=== PATIENT | female | born 1985 | race Caucasian/White ===

== ENCOUNTER → 2016-05-24 | Outpatient (CLI) | payer OTHER ==
[~2016-05-24] MED LIST: ACETAMINOPHEN 325 MG TAB PO ONE; ONDANSETRON DISINTEGRATING 4 MG TAB PO ONE; diphenhydrAMINE 12.5 MG/5 ML UDCUP PO ONE
== END ==
LOC: F1NOP 10:49
PROVIDERS: ATTEND Internal Medicine Hematology & Oncology
PROC: 30233N1 Transfusion of Nonautologous Red Blood Cells into Peripheral Vein, Percutaneous Approach (ICD-10-PCS; principal; 2016-05-24)
DX: C50.919 Malignant neoplasm of unspecified site of unspecified female breast (principal)
CPT/HCPCS: 36430; P9016

== ENCOUNTER → 2016-05-24 | Outpatient (CLI) | payer OTHER ==
--- NOTE | 2016-05-24 12:02 | DX ---
Chest, PA and Lateral Views with ClearRead Bone Suppression Algorithm Image - May 24, 2016, at 10 :58 a.m. Clinical History: 31-year-old female with a history of metastatic breast cancer on chemotherapy, with a left Pleurx catheter, which has been draining less. Compare with prior [facility] ra diography and [facility] CT imaging. Comparison Study: Chest radiography from [facility] dated May 07, 2016 and [facility] 2015, and a PET/CT scan from [facility] dated April 18, 2016. Findings: There is a right IJ central venous catheter Mediport, which terminates in the distal SVC, just proximal to the cavoatrial junction. The patient has had a left mastectomy, and there is an augm entation mammoplasty. Numerous left axillary tom dissection clips are present. A left-sided Pleurx catheter is stable in position terminating medially. The cardiac silhouette remains mildly enlarged, and there is some persistent pleuroparenchymal consolidation at the left lung base seen both anterior ly and posteriorly, slightly improved from April, however, there is a persistent loculated compone nt of consolidation in the posterior left upper lobe, which has slightly diminished. Diffuse peribron chial thickening is seen with peripheral interstitial prominent markings in the right [id number] marco a ng zone. There is a tiny right pleural effusion with some right basilar subsegmental atelectasis. The re is a mild thoracic dextroscoliosis. There are some air-filled loops of small bowel with nonspecifi c features in the abdomen, as well as a small amount of air within the stomach. Impression: 1. Stable positioning of a left-sided Pleurx catheter with some improvement in the pleuroparenchymal consolidation at the left lung base compared to May 07, 2016, and slight improvement, though the re is a persistent area of dense pleuroparenchymal consolidation in the posterior left upper lobe. 2. Cardiomegaly with diffuse peribronchial thickening and persistent interstitial disease in the righ t mid and lower lung zones (similar to May 07, 2016), and a tiny right pleural effusion. Results were called to Dr. Tiffany Hopkins at [facility], as requested. A test result has been communicated to a licensed care provider and documented in [facility], 11:50:44 A M, 05/24/2016, [facility] Message ID [id number].
== END ==
LOC: FIMAGING 10:44
PROVIDERS: ATTEND Nurse Practitioner
DX: J90 Pleural effusion, not elsewhere classified (principal); I51.7 Cardiomegaly; J84.9 Interstitial pulmonary disease, unspecified; C50.919 Malignant neoplasm of unspecified site of unspecified female breast; Z96.89 Presence of other specified functional implants; Z79.899 Other long term (current) drug therapy

== ENCOUNTER 2016-06-07 07:24 | Emergency (ER) | payer OTHER ==
--- NOTE | 2016-06-07 07:46 | EDPHY ---
H & P Stated Complaint: HAS A DRAIN UNDER L BREAST, NOW HAVE SOB AND PAIN W/ INSPIRATION Time Seen by Provider: 06/07/16 07:46 HPI/ROS: CHIEF COMPLAINT: Right-sided pleuritic chest pain HISTORY OF PRESENT ILLNESS: The patient has a history of metastatic breast cancer. She presents to the ED with a 1 day history of right-sided pleuritic chest pain. She has had a slight increase in her chronic cough. The patient does have a history of a malignant pleural effusion in the left side of her chest. She has a chronic indwelling drain for this condition. The patient has not had a history of a pleural effusion on her right thorax. The patient reportedly had a CT scan done on Monday which demonstrated an abnormality in the right chest which she is uncertain of the specific finding. The patient denies asymmetric calf pain or swelling. The patient does report fairly significant weight loss. She denies additional acute complaints. REVIEW OF SYSTEMS: A comprehensive 10 point review of systems is otherwise negative aside from elements mentioned in the history of present illness. Source: Patient Exam Limitations: No limitations - Personal History LMP (Females 10-55): Over 28 Days Ago Current Tetanus/Diphtheria Vaccine: Yes Current Tetanus Diphtheria and Acellular Pertussis (TDAP): Yes - Medical/Surgical History Hx Asthma: Yes Hx Chronic Respiratory Disease: No Hx Diabetes: No Hx Cardiac Disease: No Hx Renal Disease: No Hx Cirrhosis: No Hx Alcoholism: No Hx HIV/AIDS: No Hx Splenectomy or Spleen Trauma: No Other PMH: Breast Ca- dx 05/12/16. IBS - Social History Smoking Status: Never smoked - Physical Exam Exam: General Appearance: Thin female, mild respiratory distress Eyes: Pupils equal and round no pallor or injection ENT, Mouth: Mucous membranes moist Respiratory: Decreased breath sounds right lung base, PleurX catheter noted to the left chest wall Cardiovascular: Regular rate and rhythm Gastrointestinal: Abdomen is soft and nontender, no masses, bowel sounds normal Neurological: A&O, normal motor function, normal sensory exam, normal cranial nerves Skin: Warm and dry, no rashes Musculoskeletal: Neck is supple nontender Extremities: symmetrical, full range of motion Constitutional: Initial Vital Signs Temperature (C) 36.6 C 06/07/16 07:26 Heart Rate 129 H 06/07/16 07:26 Respiratory Rate 20 06/07/16 07:26 Blood Pressure 149/104 H 06/07/16 07:26 O2 Sat (%) 98 06/07/16 07:26 O2 Delivery Mode Nasal Cannula O2 (L/minute) 2 Allergies/Adverse Reactions: Penicillins Allergy (Mild, Verified 04/29/16 17:11) Rash Sulfa (Sulfonamide Antibiotics) Allergy (Unknown, Verified 05/02/10 09:24) sulfamethoxazole [From Bactrim] Allergy (Verified 11/05/15 10:01) trimethoprim [From Bactrim] Allergy (Verified 11/05/15 10:01) Home Medications: Medication Instructions Recorded Albuterol Sulfate [Albuterol HFA 1 - 2 puffs IH DAILY PRN 05/02/10 17g] Granisetron [Sancuso] 1 each TD Q7D 04/29/16 DEXAMETHASONE 06/07/16 Omeprazole 06/07/16 Medical Decision Making - Diagnostics EKG Interpretation: EKG: Complete interpretation has been separately recorded in the [facility] archive. Summary impression: Sinus tachycardia, rate 117 Imaging: Chest x-ray PA lateral: Images reviewed by myself interstitial. Chronic lung disease noted, a small right pleural effusion, no pneumonia. No pneumothorax. CT chest pulmonary angiogram: Negative for acute thromboembolic disease. Study results reported to me by Dr. Esa Spence. ED Course/Re-evaluation: The patient presents to the ED with right-sided pleuritic chest pain. The patient has no evidence of an obvious pulmonary embolism on her CT scan. The patient is hemodynamically stable aside from slight tachycardia. Additionally, the patient has no evidence of a significant right-sided effusion, pneumothorax or pneumonia. 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 At this point time I do feel the patient can be discharged home with pain medications. The patient will be given a prescription for Percocet. I have touch base with her regular oncologist Dr. Juan Ramon Vazquez informing him of her workup today. The patient will be instructed to return to the ED for any markedly worsening symptoms or other concerns. Re-examined at 10:00 a.m.: Patient is comfortable being discharged home at this point time. Differential Diagnosis: Differential diagnosis considered includes pulmonary embolism, pneumonia, pneumothorax, malignant pleural effusion - Data Points Laboratory Results: Laboratory Results 06/07/16 08:07 06/07/16 08:07 06/07/16 08:07 WBC 6.87 10^3/uL (3.80-9.50) RBC 3.51 L 10^6/uL (4.18-5.33) Hgb 11.1 L g/dL (12.6-16.3) Hct 32.1 L % (38.0-47.0) MCV 91.5 fL (81.5-99.8) MCH 31.6 pg (27.9-34.1) MCHC 34.6 g/dL (32.4-36.7) RDW 15.8 H % (11.5-15.2) Plt Count 49 L 10^3/uL (150-400) MPV 9.7 fL (8.7-11.7) Neut % (Auto) Not Reported Lymph % (Auto) Not Reported Lane % (Auto) Not Reported Eos % (Auto) Not Reported Baso % (Auto) Not Reported Nucleat RBC Rel Count 0.9 H % (0.0-0.2) Absolute Neuts (auto) Not Reported Absolute Lymphs (auto) Not Reported Absolute Monos (auto) Not Reported Absolute Eos (auto) Not Reported Absolute Basos (auto) Not Reported Absolute Nucleated RBC 0.06 H 10^3/uL (0-0.01) Immature Gran % Not Reported Seg Neutrophils % 60 % Band Neutrophils % 19 % Lymphocytes % 6 % Monocytes % 10 % Metamyelocytes % 1 % Myelocytes % 4 % Immature Gran # Not Reported Absolute Seg Neuts 4.12 10^/uL (1.70-6.50) Absolute Band Neuts 1.31 H 10^3/uL (0.00-0.70) Absolute Lymphocytes 0.41 L 10^3/uL (1.00-3.00) Absolute Monocytes 0.69 10^3/uL (0.30-0.80) Absolute Metamyelocyte 0.07 H 10^3/mL (0.00-0.00) Absolute Myelocytes 0.27 H 10^3/mL (0.00-0.00) Nucleated RBCs 1 H /100 WBC (0-0) Platelet Estimate DECREASED L (ADEQ) Polychromasia 2+ H Basophilic Stippling 1+ H Smear Review By Pending Sodium 139 mEq/L (134-144) Potassium 3.8 mEq/L (3.5-5.2) Chloride 98 mEq/L (97-110) Carbon Dioxide 33 H mEq/l (22-31) Anion Gap 8 mEq/L (8-16) BUN 17 mg/dL (7-23) Creatinine 0.5 L mg/dL (0.6-1.0) Estimated GFR > 60 Glucose 104 H mg/dL (70-100) Calcium 8.7 mg/dL (8.5-10.4) Beta HCG, Qual NEGATIVE Medications Given: Discontinued Medications Morphine Sulfate (Morphine) 2 mg IVP EDNOW ONE Stop: 06/07/16 08:13 Last Admin: 06/07/16 08:37 Dose: 2 mg Departure - Departure Disposition: Home, Routine, Self-Care Clinical Impression: Metastatic breast cancer Chest pain Qualifiers: Chest pain type: pleurodynia Qualifier Code: (R07.81) Pleurodynia Condition: Good Instructions: Chest Pain (ED) Additional Instructions: 1. Take pain medications as needed. 2. Please follow up as scheduled with your oncologist. 3. Please return to the ED for markedly worsening symptoms or other concerns. Referrals: Juan Ramon Vazquez MD [Medical Doctor] - As per Instructions
[2016-06-07 08:16] LABS: ABSOLUTE NRBC COUNT 0.06 10^3/uL (0-0.01); ADD DIFF? YES; ADD MORPH? NO; ADD SCAN? NO; ATYPICAL LYMPHOCYTE FLAG 0 (0-99); FRAGMENT RBC FLAG 20 (0-99); HEMATOCRIT 32.1 % (38.0-47.0); HEMOGLOBIN 11.1 g/dL (12.6-16.3); LEFT SHIFT FLG 60 (0-99); LIPEMIA HEMOLYSIS FLAG 90 (0-99); MEAN CELL HEMOGLOBIN 31.6 pg (27.9-34.1); MEAN CELL HEMOGLOBIN CONCENTR. 34.6 g/dL (32.4-36.7); MEAN CELL VOLUME 91.5 fL (81.5-99.8); MEAN PLATELET VOLUME 9.7 fL (8.7-11.7); NRBC-AUTO% 0.9 % (0.0-0.2); PLATELET CLUMPS FLAG 10 (0-99); RED BLOOD CELL COUNT 3.51 10^6/uL (4.18-5.33); RED CELL DISTRIBUTION WIDTH 15.8 % (11.5-15.2)
[2016-06-07 08:17] LABS: PLATELET COUNT 49 10^3/uL (150-400)
[2016-06-07] MEDS ORDERED: IOPAMIDOL (ISOVUE 370) 100 ML BTL IV ONE (08:18)
--- NOTE | 2016-06-07 08:46 | DX ---
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 Some focal consoli dation at the medial left base is little if at all changed. A left chest wall Pleurx catheter remains in place coursing along the medial posterior left pleural surface. Left axillary surgical clips and a right chest wall implanted port remain in place. There is no pneumothorax. Oxygen tubing and EKG le ads overlie the chest. A minor T6 compression is stable. No new compressions have developed. There is an unchanged thoracic dextroscoliosis. Impression: Little if any change x2 weeks.
[2016-06-07 08:54] LABS: ANION GAP 8 mEq/L (8-16); CALCIUM 8.7 mg/dL (8.5-10.4); CARBON DIOXIDE 33 mEq/l (22-31); CHLORIDE 98 mEq/L (97-110); CREATININE 0.5 mg/dL (0.6-1.0); GLOMERULAR FILTRATION RATE > 60; GLUCOSE 104 mg/dL (70-100); POTASSIUM 3.8 mEq/L (3.5-5.2); SODIUM 139 mEq/L (134-144)
[2016-06-07 09:02] LABS: PLATELET ESTIMATE DECREASED (ADEQ)
[2016-06-07 09:03] LABS: POLYCHROMASIA 2+
[2016-06-07 09:55] VITALS: RESP 18
--- NOTE | 2016-06-07 10:11 | CT ---
CT Pulmonary Angiogram 0 921 hours Clinical Indications: Chest pain with shortness of breath. Possible pulmonary embolus. History of silverio ast cancer and left-sided pleural drain. Technique: Thinly collimated multidetector helical CT imaging was performed through the chest while 75 mL Isovue-370 were injected intravenously without complication. The images were reconstructed in multiple planes. Dose reduction techniques were utilized. Findings: Comparison to prior outside CT study from [facility] from June 03, 2016. CT Angiogram: There is no evidence of intraluminal thrombus within the pulmonary arterial system. Th e thoracic aorta has a normal contour without evidence of aneurysm or dissection. There is no perica rdial effusion. The cardiac chambers are normal in appearance. CT Chest: Left-sided pleural drain is once again noted with stable appearance of left effusion. Small right pleural effusion has increased since the prior study. There is thickening around the bronchova scular bundles involving both lower lobes that could represent component of lymphangitic carcinomatos is. Perihilar lymph nodes are evident. Mediastinal lymphadenopathy is once again noted. The visualize d upper abdominal structures are unremarkable during arterial phase of imaging. Skeletal system: Vertebral body heights are well-maintained. There are no lytic or sclerotic osseous lesions. Impression: 1. No evidence of pulmonary embolus using CT protocol. 2. Stable left-sided pleural drain with stable left effusion. 3. Mild increase in small right effusion. 4. 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 5. Hilar and mediastinal lymphadenopathy noted. These findings discussed by telephone with Dr. Claudio Salgado at 0 948 hrs.
[2016-06-07 10:25] VITALS: BP 153/100; PULSE 108; TEMP 96.8; O2SAT 97
--- NOTE | 2016-06-07 13:45 | CPEKG ---
Heart Rate: 117 RR Interval: 513 P-R Interval: 168 QRSD Interval: 62 QT Interval: 316 QTC Interval: 441 P [place]: 55 QRS [place]: 69 T Wave [place]: 48 EKG Severity - OTHERWISE NORMAL ECG - EKG Impression: SINUS TACHYCARDIA Electronically Signed By: Solo Salgado 07-Jun-2016 13:51:46
== END 2016-06-07 10:32 | disposition home or self-care (01) ==
DX: R07.81 Pleurodynia (principal); C79.81 Secondary malignant neoplasm of breast; C80.1 Malignant (primary) neoplasm, unspecified; J45.909 Unspecified asthma, uncomplicated
CPT/HCPCS: 96374; Q9967

== ENCOUNTER 2016-06-17 09:13 | Day surgery (SDC) | payer OTHER ==
[2016-06-17] MEDS ORDERED: MIDAZOLAM 2 MG/2 ML VIAL ONE ×2 (10:20→12:14)
[2016-06-17] MEDS ORDERED: fentaNYL 100 MCG/2 ML INJ ONE ×3 (10:20→12:15)
--- NOTE | 2016-06-17 13:37 | IR ---
Removal of Left Pleural Iván Drain History: Metastatic breast cancer. Cessation of drainage from tunneled left pleural drainage tube. Consent: Risks and benefits of the procedure were discussed in detail, and informed consent was obta ined. Medications: Intravenous conscious sedation and analgesia were given under my supervision. Vital sign s, pulse oximetry, and electrocardiogram were monitored. The patient received 2.5 milligrams of Verse d and 150 micrograms of fentanyl intravenously. Start time: 1200. End time: 1227. Fluoroscopy time in minutes: 0.3. Estimated exposure in milligray: 1.2. Technique: The exiting portion of the left pleural [place] drain and surrounding skin were prepped and draped in sterile fashion. All elements of maximal sterile barrier technique were used, including ca p, mask, sterile gown, sterile gloves, large sterile sheath, hand hygiene, and 2% chlorhexidine for c utaneous antisepsis. 1% Xylocaine was used for local anesthetic. Tonsil clamps were used to dissect t he tissue ingrowth cuff free of the tunnel. Clamp was used to occlude the tube, while the external po rtion of the tube was severed. A [employer] tree adapter and 60 mL syringe were placed. Aspiration of the tube, during extraction, yielded 85 mL of otoniel fluid, discarded. Petrolatum gauze dressing was a pplied. Frontal spot image was obtained. The patient tolerated the procedure well and was returned to pre/post for observation. Findings: Compare June 07, 2016. Mild amount of left pleural fluid appears less than June 07. T he tissue security operations center analyst over the left breast and the right jugular tunneled MediPort catheter are unchange d. No pneumothorax. Impression: Removal of left pleural Iván drain. 85 mL of pleural fluid were evacuated during remova l. - - - - - - - - - - - - - - - - - - - - - - - - - - - - - (PQRS measures: Current medications were listed in the medical record, including all known prescripti ons, [id number] medications, herbal medications, and nutritional supplements. Tobacco use: None . Prophylactic antibiotic: Unnecessary. VTE prophylaxis:Unnecessary.)
== END 2016-06-17 13:10 | disposition home or self-care (01) ==
LOC: FIMAGING 09:13
PROVIDERS: ATTEND Internal Medicine Hematology & Oncology
PROC: 0WPBX0Z Removal of Drainage Device from Left Pleural Cavity, External Approach (ICD-10-PCS; principal; 2016-06-17 12:35)
DX: Z45.2 Encounter for adjustment and management of vascular access device (principal); C79.9 Secondary malignant neoplasm of unspecified site; C50.412 Malignant neoplasm of upper-outer quadrant of left female breast; Z88.0 Allergy status to penicillin; Z88.2 Allergy status to sulfonamides
CPT/HCPCS: J2250; J3010

== ENCOUNTER 2016-06-23 07:06 | Emergency (ER) | payer OTHER ==
--- NOTE | 2016-06-23 07:30 | EDPHY ---
HPI/HX/ROS/PE/MDM Narrative: Chief complaint: Shortness of breath HPI: Patient has a history of metastatic breast cancer diagnosed in April of 2015. Patient has had aggressive metastasis and early last month was diagnosed with a malignant pleural effusion on the left. She had a thoracostomy at that time which was left in place to allow for drainage. This was removed last Monday. She was told 2 days ago by the nurse practitioner [facility] that they anticipate that she might require occasional thoracentesis for recurring effusion. She is currently under the care of Dr. Vazquez. She is presenting today complaining of increasing shortness of breath and increasing cough since yesterday. This is similar to her last presentation when she had the initial pleural effusion diagnosed. She denies any fevers or chills. No nausea or vomiting. She is fatigued which is consistent with her chemotherapy which she last had 2 days ago. She does not recall her current chemotherapy regimen. She does have some pain in the right side of her chest with cough. Denies any pleuritic chest pain. No abdominal pain. No urinary symptoms. ROS: 10 point Review of Systems is negative except as noted in the HPI. Physical exam: Gen: Awake, Alert, No Distress HEENT: Nose: no rhinorrhea Eyes: PERRLA, EOMI Mouth: Moist mucosa Neck: Supple, no JVD Chest: nontender, she has decreased breath sounds on the left with rales up to the left midlung Heart: S1, S2 normal, no murmur Abd: Soft, non-tender, no guarding Back: no CVA tenderness, no midline tenderness Ext: no edema, non-tender Skin: no rash Neuro: CN II-XII intact, Sensation grossly intact, Strength 5/5 in bilateral upper and lower extremities ED Course: Chest x-ray: Impression: 1. Increasing right pleural effusion and cardiomegaly. Difficult to exclude fluid overloading or CHF superimposed on the patient's diffuse metastatic disease. Please see above. I have reviewed the patient's chest x-ray. She does not have a large effusion that would be drainable in the emergency department. Oxygen saturation is 96-98 % on 2 L at her baseline. She is afebrile. Respiratory rate is 18 to 22. I have discussed with Dr. Juan Ramon Vazquez, her oncologist. He has reviewed her chest x-ray and is in agreement that there is no indication for thoracentesis at this time. He would like to increase her dexamethasone to 40 mg twice a day. He will follow up with her it the [facility] either tomorrow or early next week. I have discussed at length with the patient she is in agreement with this plan and would like to go home. General Time Seen by Provider: 06/23/16 07:16 Initial Vital Signs: Initial Vital Signs Temperature (C) 36.3 C 06/23/16 07:09 Heart Rate 117 H 06/23/16 07:09 Respiratory Rate 22 H 06/23/16 07:09 Blood Pressure 150/99 H 06/23/16 07:09 O2 Sat (%) 96 06/23/16 07:09 O2 Delivery Mode Nasal Cannula O2 (L/minute) 2 Allergies/Adverse Reactions: Penicillins Allergy (Mild, Verified 04/29/16 17:11) Rash Sulfa (Sulfonamide Antibiotics) Allergy (Unknown, Verified 05/02/10 09:24) sulfamethoxazole [From Bactrim] Allergy (Verified 11/05/15 10:01) trimethoprim [From Bactrim] Allergy (Verified 11/05/15 10:01) Home Medications: Medication Instructions Recorded Albuterol Sulfate [Albuterol HFA 1 - 2 puffs IH DAILY PRN 05/02/10 17g] Granisetron [Sancuso] 1 each TD Q7D 04/29/16 DEXAMETHASONE 4 mg 06/07/16 Omeprazole 06/07/16 oxyCODONE/APAP 5/325 [Percocet 1 - 2 tab PO Q6-8PRN PRN #20 tab 06/07/16 5/325 (RX)] oxyCODONE/APAP 5/325 [Percocet 1 - 2 tab PO Q6-8PRN PRN #20 tab 06/07/16 5/325 (RX)] LORAZEPAM 0.5 mg 06/16/16 Prilosec 20 mg 20 mg 06/16/16 oxyCODONE/APAP 5/325 [Percocet 1 - 2 tab PO Q4H PRN #20 tab 06/23/16 5/325 (*)] Departure - Departure Disposition: Home, Routine, Self-Care Clinical Impression: Pleural effusion, Metastatic cancer Condition: Good Instructions: Pleural Effusion (ED) Additional Instructions: Increase your dexamethasone to 4 mg twice a day. Follow up with Dr. Vazquez at the [facility] either tomorrow or early next week. Return to the emergency depart for increasing difficulty breathing, increasing pain, or any other concerns. Referrals: Erin Martinez MD [Primary Care Provider] - As per Instructions Juan Ramon Vazquez MD [Medical Doctor] - As per Instructions Prescriptions: oxyCODONE/APAP 5/325 [Percocet 5/325 (*)] 1 - 2 tab PO Q4H PRN #20 tab PRN Reason: Pain, Severe
[2016-06-23 08:15] VITALS: O2SAT 98
--- NOTE | 2016-06-23 08:16 | DX ---
Chest, PA and Lateral History: Dyspnea, left malignant pleural effusion, thoracostomy one week ago to remove left Iván dr meier Comparison: June 07, 2016 Findings: The left temporal drain has been removed. Left pleural fluid is slightly improved. Right pl eural effusion is slightly larger. On the lateral view there is either increased intrafissural fluid versus left upper lobe atelectasis in the upper chest. Bilateral micronodular disease remains, consis tent with diffuse metastatic disease. The heart remains enlarged. I suspect the pulmonary vascularity is plethoric. A right chest wall implanted port remains in place with tip of its catheter in the sup erior vena cava. A left chest wall radiopaque "doughnut-like" object with an extremely dense center r emains. Left chest wall surgical clips remain. Impression: 1. Increasing right pleural effusion and cardiomegaly. Difficult to exclude fluid overloa ding or CHF superimposed on the patient's diffuse metastatic disease. Please see above.
[2016-06-23 08:52] VITALS: BP 128/92; PULSE 112; RESP 20; TEMP 98.2
== END 2016-06-23 08:53 | disposition home or self-care (01) ==
DX: J90 Pleural effusion, not elsewhere classified (principal); C50.919 Malignant neoplasm of unspecified site of unspecified female breast

== ENCOUNTER → 2016-07-19 | Outpatient (CLI) | payer OTHER | LOC: FIMAGING 13:39 | PROVIDERS: ATTEND Nurse Practitioner | DX: J90 Pleural effusion, not elsewhere classified (principal); C50.412 Malignant neoplasm of upper-outer quadrant of left female breast ==

== ENCOUNTER 2016-08-02 09:42 | Inpatient (IN) | payer OTHER ==
[2016-08-02 13:10] LABS: % IMMATURE GRANULYOCYTES 1.5 % (0.0-1.1); ABSOLUTE IMMATURE GRANULOCYTES 0.13 10^3/uL (0.00-0.10); ABSOLUTE NRBC COUNT 0.02 10^3/uL (0-0.01); ADD DIFF? NO; ADD MORPH? NO; ADD SCAN? NO; ATYPICAL LYMPHOCYTE FLAG 30 (0-99); FRAGMENT RBC FLAG 20 (0-99); HEMATOCRIT 30.3 % (38.0-47.0); HEMOGLOBIN 10.2 g/dL (12.6-16.3); LEFT SHIFT FLG 10 (0-99); LIPEMIA HEMOLYSIS FLAG 80 (0-99); MEAN CELL HEMOGLOBIN 33.2 pg (27.9-34.1); MEAN CELL HEMOGLOBIN CONCENTR. 33.7 g/dL (32.4-36.7); MEAN CELL VOLUME 98.7 fL (81.5-99.8); MEAN PLATELET VOLUME 10.5 fL (8.7-11.7); NRBC-AUTO% 0.2 % (0.0-0.2); PLATELET CLUMPS FLAG 10 (0-99); PLATELET COUNT 236 10^3/uL (150-400); RED BLOOD CELL COUNT 3.07 10^6/uL (4.18-5.33); RED CELL DISTRIBUTION WIDTH 16.9 % (11.5-15.2)
[2016-08-02 13:23] LABS: INR 1.15 (0.83-1.16); PROTIME(PATIENT) 14.7 SEC (12.0-15.0)
[2016-08-02 13:24] LABS: APTT 28.3 SEC (23.0-38.0)
[2016-08-02 13:35] LABS: ALANINE AMINOTRANSFERASE 29 IU/L (9-52); ALBUMIN 3.5 g/dL (3.5-5.0); ALKALINE PHOSPHATASE 68 IU/L (38-126); ANION GAP 13 mEq/L (8-16); ASPARTATE AMINOTRANSFERASE 25 IU/L (14-46); BILIRUBIN,TOTAL 0.8 mg/dL (0.1-1.4); BILIRUBIN-CONJUGATED 0.4 mg/dL (0.0-0.5); BILIRUBIN-UNCONJUGATED 0.4 mg/dL (0.0-1.1); CALCIUM 8.7 mg/dL (8.5-10.4); CARBON DIOXIDE 32 mEq/l (22-31); CHLORIDE 93 mEq/L (97-110); CREATININE 0.4 mg/dL (0.6-1.0); GLOMERULAR FILTRATION RATE > 60; GLUCOSE 101 mg/dL (70-100); POTASSIUM 3.5 mEq/L (3.5-5.2); SODIUM 138 mEq/L (134-144); TOTAL PROTEIN 6.1 g/dL (6.3-8.2)
[2016-08-02] MEDS ORDERED: ONDANSETRON 4 MG/2 ML VIAL IVP PRN (13:46)
[2016-08-02] MEDS ORDERED: ACETAMINOPHEN 325 MG TAB PO PRN (13:46)
[2016-08-02] MEDS ORDERED: NS 1,000 ML IV ONE ×2 (13:50→13:51)
--- NOTE | 2016-08-02 13:50 | CPEKG ---
Heart Rate: 134 RR Interval: 448 P-R Interval: 148 QRSD Interval: 62 QT Interval: 284 QTC Interval: 424 P [place]: 64 QRS [place]: 76 T Wave [place]: -55 EKG Severity - ABNORMAL ECG - EKG Impression: SINUS TACHYCARDIA EKG Impression: MULTIPLE VENTRICULAR PREMATURE COMPLEXES EKG Impression: BORDERLINE T ABNORMALITIES, DIFFUSE LEADS Electronically Signed By: Randolph Orellana 03-Aug-2016 18:52:47
[2016-08-02] MEDS ORDERED: HYDROCORTISONE 100 MG/2 ML VIAL IVP ONE ×2 (13:51→16:30)
[2016-08-02] MEDS: HYDROmorphONE/DILAUDID 1 MG/ML SYR IVP PRN ×3 (14:03→19:52)
[2016-08-02 14:30] LABS: COLOR YELLOW; LEUKOCYTE ESTERASE,URINE 1+ (NEGATIVE); NITRITE,URINE POSITIVE (NEGATIVE)
[2016-08-02 14:35] LABS: BACTERIA TRACE /hpf (NONE SEEN); MUCUS 2+ /lpf (NONE-1+); WBC,URINE 15-25 /hpf (0-3)
--- NOTE | 2016-08-02 14:39 | GHP ---
[f rep st] HISTORY AND PHYSICAL DATE OF ADMISSION: 08/02/2016 CHIEF COMPLAINT: Fever, shortness of breath. HISTORY: The patient is a 31-year-old female with metastatic breast cancer with lymphangitic spread . She has also had a malignant pleural effusion with a PleurX catheter. She wears oxygen intermitt ently and follows her pulse oximetries at home. Approximately 1 week ago, she noted pulse oximetrie s in the low 80s and so she put her oxygen back on. She has had a chronic cough for the last couple of months; however, it has gotten worse over the last 2 days. She has had worsening shortness of b reath. Her cough is nonproductive. She has a slight right-sided back pain with her cough. Fever a t home was 101. Sounds like she does intermittently have fevers at home. PAST MEDICAL HISTORY: 1. Stage IV breast cancer. 2. Malignant left-sided effusion status post PleurX catheter which was removed 6 weeks ago due to l ow output. 3. Lymphangitic spread with chronic respiratory failure. 4. Asthma. MEDICATIONS: Please see computer record for full detailed list. ALLERGIES: Penicillin and sulfa. SOCIAL HISTORY: No smoking. No alcohol. She has used medical marijuana in the past but not curren tly. She lives with her in [place]. REVIEW OF SYSTEMS: Complete review of systems obtained. Review of systems is negative regarding co nstitutional, HEENT, GI, pulmonary, cardiovascular, , hematology, skin, musculoskeletal, endocrine and psychiatric, except for positives and negatives as noted in HPI. FAMILY HISTORY: Positive for cancer. PHYSICAL EXAMINATION: GENERAL: Well-developed, well-nourished female in no acute distress. VITAL SIGNS: Temperature is 38.2, pulse 133, blood pressure 133/88, saturating 90% 2 L. EYE: Normal con junctivae. Pupils equal, round, react to light. ENT: Normal ears and nose. Hearing intact. Norm al lips and teeth. Oropharynx moist. NECK: Trachea midline. No thyromegaly. CHEST: Normal resp iratory effort. LUNGS: Extensive bilateral rales. No rhonchi or wheeze. CARDIOVASCULAR: Tachyca rdic. No murmur. No lower extremity edema. ABDOMEN: Soft, nontender. No hepatosplenomegaly. SK IN: Warm, dry, intact. No rash. MUSCULOSKELETAL: No cyanosis or clubbing. Strength 5/5 in upper and lower extremities. NEURO: Cranial nerves intact. Normal sensation to light touch. PSYCH: A lert and oriented x3. Normal mood and affect. Normal judgment and insight. Normal memory. LABORATORY DATA: White count 8.65, hematocrit 30.3, platelets 236, sodium 138, potassium 3.5, chlor ama 93, bicarb 32, BUN 8, creatinine 0.9, glucose 101. LFTs are negative. INR is 1.15. Lactate is 1.1. EKG viewed by me. My personal interpretation is sinus tachycardia. No ST or T-wave changes. Chest x-ray shows worsening bilateral infiltrates. Medical records reviewed. She has been hospitalized here before for recurrent malignant effusion fo r which a PleurX catheter was placed. ASSESSMENT/PLAN: 1. Pneumonia with sepsis. She does have underlying lymphangitic spread which makes her chest x-ray difficult to interpret; however, it does appear her bilateral infiltrates are worsening. This may be progression of her cancer versus superimposed infection. She is also high risk for pulmonary emb olism and so we will get a CT angiogram of the chest. We will give her IV fluid bolus for initial s tabilization although her initial lactate is okay. We will start ceftriaxone and azithromycin. 2. Metastatic breast cancer with known lymphangitic spread and malignant pleural effusion. Dr. Chilo butterfield is aware of her admission. 3. Malignant effusion status post PleurX catheter. This was recently removed. I do not see any re accumulation of fluid at this time. 4. Acute on chronic respiratory failure. She has stabilized on oxygen nicely. CODE STATUS: Full. ADMISSION STATUS: We will start with observation in case she turns around quickly although I antici mina it will take more than 1 midnight for stabilization. DEEP VENOUS THROMBOSIS PROPHYLAXIS: She is high risk. I will place her on subcu Lovenox. /[id number]/MODL
[2016-08-02] MEDS ORDERED: IOPAMIDOL (ISOVUE 370) 100 ML BTL IV ONE (15:16)
--- NOTE | 2016-08-02 16:19 | GCON ---
[f rep st] CONSULTATION ONCOLOGY CONSULTATION NOTE DATE OF CONSULTATION: 08/02/2016 REASON FOR CONSULTATION: Metastatic breast carcinoma. HISTORY OF PRESENT ILLNESS: The patient is a pleasant 31-year-old female who was diagnosed initiall y with a stage IIIC breast carcinoma in April of 2015. She was treated with neoadjuvant docetaxe l, carboplatin, and trastuzumab with concurrent pertuzumab. She then continued dual antibody therap y until November of 2015. Her/2-deana status was equivocal and this was stopped. She had a modified radi eugenio mastectomy in November of 2015. She had postmastectomy radiation to the chest wall. She, ondina wells, developed metastatic disease to both lungs. She has been treated with capecitabine at the [facility] of initial metastatic progression (February 2016). She had disease progression while on capecitabi ne, and was recently started on palliative paclitaxel in May of this year. She has had fairly g ood tolerance to paclitaxel. She reports 2-3 weeks of increasing dyspnea. A re-staging CT of the c hest, abdomen, and pelvis performed on July 29 reveals interval progression and thickening of the bronchovascular bundles bilaterally with an overall diffuse reticulonodular pattern concerning for either lymphangitic carcinomatosis versus bilateral pneumonia. The patient has a chronic left pleur al effusion, which is stable. She has persistent mediastinal hilar and right axillary lymphadenopat hy. She has had fevers at home over the past 2-3 days. She was seen in the office by Dr. Vazquez earlier today, and was found have a temperature of 101.1. She was admitted for further management and for t reatment of possible pneumonia. She has been started on ceftriaxone and azithromycin. She is sched uled to have a repeat CT angiogram done to exclude pulmonary embolus. She is noted to be tachycardi ac here in the hospital. PAST MEDICAL HISTORY: 1. Metastatic breast cancer as outlined above. 2. Asthma. 3. History of bulimia. PAST SURGICAL HISTORY: Right mastectomy November 2015. SOCIAL HISTORY: The patient lives in [place], [place]. She is to Alex. REVIEW OF SYSTEMS: As outlined above. The patient denies any hemoptysis or purulent sputum. She d id develop some chest pain since admission. This is not present at the current time. PHYSICAL EXAMINATION: GENERAL: The patient is in no acute distress. HEENT: Pupils are equal. Sc lerae nonicteric. CARDIAC: Heart is tachycardiac, without murmur. LUNGS: Sounds are diminished b ilaterally with no wheeze or rhonchi. No calf tenderness or swelling bilaterally. NEURO: Patient is alert, oriented, and appropriate. DIAGNOSTIC STUDIES: Recent CT results as outlined above. Sodium 138, potassium 3.5, chloride 93, b icarb 32, BUN 8, creatinine 0.4, calcium 8.7, total bilirubin is 0.8, AST 25, ALT 29. White count 8 .6, hemoglobin 10.2, hematocrit 30.3, platelet count is 236,000. IMPRESSION: 1. Metastatic breast carcinoma (patient recently on second-line palliative therapy with Taxol). 2. History of malignant left-sided pleural effusion with previous PleurX catheter, which was remove d approximately 6 weeks ago. 3. Progressive disease in the lungs (lymphangitic spread versus superimposed pneumonia). 4. History of asthma. PLAN: The patient is admitted with worsening respiratory status. A CT scan done on July 29 show s disease progression versus superimposed pneumonia. She is being admitted for treatment of pneumon ia and has been started on ceftriaxone and azithromycin. She does have a fever, which certainly vicki es superimposed infection a very real possibility. There is also the possibility of Taxol-induced pneumonitis. The patient was started on steroids in the outpatient setting with no improvement, and has received 100 mg of Solu-Medrol this admission. I think Taxol pneumonitis is thus doubtful, however, could consider putting her on prednisone tomorr ow if her status is no better. A CT angiogram has been ordered to evaluate for pulmonary embolus. If this were present, the patien t would be started on anticoagulation preferably with low-molecular weight heparin. The patient is aware of her diagnosis and the incurable nature of her underlying illness. She has h ad multiple discussions about her diagnosis with Dr. Vazquez in the outpatient setting, but at this po int, desires full code status. She is hopeful to receive a trial of immunotherapy in the future. Dr. Vazquez has been notified of her admission. Our service will continue to follow her during her hospital stay. Her questions were answered today. Total time for today's visit was approximately 40 minutes. /[id number]/MODL
--- NOTE | 2016-08-02 17:16 | ECHO ---
[id number] + + [address] : : [place] [address] : : [phone] + Adult Echocardiographic Report + ------+ :Name: XAVIER SPAIN KStudy Date: 08/02/2016 01:59 PM BP: 131/88 mmHg : : Hospital Admission Number: [id number] Jaden n: 202: :: 1985 Gender: Female Height: 59 in : :Age: 31 yrs Race: WH Weight: 89 lb : :Reason For Study: chf : : BSA: 1.3 meters 2 : :History: SOB breast cancer : + ------+ MMode/2D Measurements \T\ Calculations IVSd: 0.66 cm LVIDd: 3.8 cm FS: 28.4 % Ao root diam: 2.8 cm LVPWd: 0.76 cm LVIDs: 2.7 cm EDV(Teich): 63.4 ml ESV(Teich): 28.2 ml EF(Teich): 55.6 % Normal Measurement Values: + + :LVIDd (3.5-5.7cm) IVSd (0.6-1.1cm) LVPWd (0.6-1.1cm) Aortic Root (2.0-3.7cm)Left Atrium (1.5-4.0cm): :LV Vol(d) (76-115ml) LV Vol(s) (29-48ml) Ejec Fraction (50-65%)PV Jeronimo (0.6- 1.2m/s) TV Jeronimo (0.4-1.0m/s) : :MV E Jeronimo (0.8-1.0m/s)MV A Jeronimo (0.3-1.0m/s)LVOT Jeronimo (0.7-1.2m/s) Asc Ao Jeronimo ( 0.9-1.8m/s) : + + Doppler Measurements \T\ Calculations MV E max jeronimo: Ao V2 max: LV V1 max: PA V2 max: 67.6 cm/sec 110.8 cm/sec 77.0 cm/sec 80.1 cm/sec MV A max jeronimo: Ao max P.9 mmHg LV V1 max PG: PA max P.9 cm/sec 2.4 mmHg 2.6 mmHg MV E/A: 0.82 Left Ventricle The left ventricle is normal in size. There is normal left ventricular wall thickness. The left ventricle is hyperdynamic. Can not exclude a segmental wall motion abnormality secondary to teechnical limitations. Right Ventricle The right ventricle is not well visualized. Atria Grossly normal left atrial size. Right atrium not well visualized. Mitral Valve The mitral valve is normal in structure and function. There is no mitral valve stenosis. There is no mitral regurgitation noted. Tricuspid Valve The tricuspid valve is not well visualized. Aortic Valve The aortic valve is not well visualized. There is no aortic stenosis. There is no aortic insufficiency. Pulmonic Valve The pulmonic valve is not well visualized. Great Vessels The aortic root is not well visualized. Pericardium/Pleural There is no pericardial effusion. There is a moderate pleural effusion. Conclusion Very technically difficult and limited echocardiogram due to implants and tachycardia. 1. This is a technically limited study with poor windows secondary to breast implants. 2. The left ventricle is normal in size. Left ventricular systolic function appears hyperdynamic. Can not exclude a segmental wall motion abnormality secondary to technical limitations. 3. The mitral valve is normal in structure and function. 4. The aortic valve is not well visualized. There is no aortic stenosis or insufficiency by doppler. Final Reading Physician: Indio Frances MD electronically signed on 08/02/2016 05:14 PM Ordering Physician: Debby García Performed By: Ananya Schultz
[2016-08-02] MEDS: AZITHROMYCIN IV 500 MG in D5W 250 ML IV SCH (17:29)
[2016-08-02] MEDS: NS 1,000 ML IV SCH (17:36)
[2016-08-02] MEDS ORDERED: LIDOCAINE 3% TP PRN ×2 (18:02→18:12)
[2016-08-02] MEDS ORDERED: morphINE 10 MG/0.5 ML UDSYR PO PRN (18:02)
[2016-08-02] MEDS ORDERED: NON-FORMULARY NEW DRUG (Ondansetron Hcl [Zofran] 8 MG) PO PRN (18:02)
[2016-08-02] MEDS ORDERED: ONDANSETRON DISINTEGRATING 4 MG TAB PO PRN (18:11)
[2016-08-02] MEDS: LORazepam 0.5 MG TAB PO PRN (18:31)
[2016-08-02] MEDS: OXYCODONE/APAP 5/325 TAB PO PRN (19:55)
[2016-08-03] MEDS: NS 1,000 ML IV SCH (06:17)
[2016-08-03] MEDS: HYDROmorphONE/DILAUDID 1 MG/ML SYR IVP PRN ×3 (06:32→11:55)
[2016-08-03] MEDS: OXYCODONE/APAP 5/325 TAB PO PRN ×2 (06:32→19:04)
[2016-08-03 06:35] LABS: % IMMATURE GRANULYOCYTES 1.3 % (0.0-1.1); ABSOLUTE IMMATURE GRANULOCYTES 0.09 10^3/uL (0.00-0.10); ADD DIFF? NO; ADD MORPH? NO; ADD SCAN? NO; ATYPICAL LYMPHOCYTE FLAG 0 (0-99); FRAGMENT RBC FLAG 20 (0-99); HEMATOCRIT 24.4 % (38.0-47.0); HEMOGLOBIN 8.4 g/dL (12.6-16.3); LEFT SHIFT FLG 10 (0-99); LIPEMIA HEMOLYSIS FLAG 90 (0-99); MEAN CELL HEMOGLOBIN 33.5 pg (27.9-34.1); MEAN CELL HEMOGLOBIN CONCENTR. 34.4 g/dL (32.4-36.7); MEAN CELL VOLUME 97.2 fL (81.5-99.8); PLATELET CLUMPS FLAG 30 (0-99); PLATELET COUNT 213 10^3/uL (150-400); RED BLOOD CELL COUNT 2.51 10^6/uL (4.18-5.33); RED CELL DISTRIBUTION WIDTH 16.4 % (11.5-15.2)
[2016-08-03 06:59] LABS: ANION GAP 11 mEq/L (8-16); CALCIUM 8.4 mg/dL (8.5-10.4); CARBON DIOXIDE 28 mEq/l (22-31); CHLORIDE 98 mEq/L (97-110); CREATININE 0.3 mg/dL (0.6-1.0); GLOMERULAR FILTRATION RATE > 60; GLUCOSE 98 mg/dL (70-100); POTASSIUM 3.5 mEq/L (3.5-5.2); SODIUM 137 mEq/L (134-144)
[2016-08-03] MEDS: AZITHROMYCIN IV 500 MG in D5W 250 ML IV SCH (08:40)
[2016-08-03] MEDS: ENOXAPARIN 40 MG/0.4 ML SYR SC SCH (08:40)
[2016-08-03] MEDS: PANTOPRAZOLE SODIUM 40 MG TAB PO SCH (08:41)
[2016-08-03] MEDS: DEXAMETHASONE 4 MG TAB PO SCH (08:41)
[2016-08-03] MEDS ORDERED: NON-FORMULARY NEW DRUG (Omeprazole [Prilosec 20 Mg] 20 MG) PO SCH (09:00)
[2016-08-03] MEDS: LORazepam 0.5 MG TAB PO PRN ×2 (09:41→22:10)
[2016-08-03] MEDS ORDERED: POLYETHYLENE GLYCOL 3350 17 GM PKT PO PRN (13:42)
[2016-08-03] MEDS ORDERED: BISACODYL 10 MG SUPP PR PRN (13:42)
[2016-08-03] MEDS ORDERED: LACTULOSE 20 GM/30 ML UDCUP PO PRN (13:42)
[2016-08-03] MEDS ORDERED: MAGNESIUM HYDROXIDE 30 ML UDCUP PO PRN (13:42)
--- NOTE | 2016-08-03 14:12 | SOAPPROG ---
SOAP Progress Note Assessment/Plan: Assessment: 1) Metastatic breast cancer with diffuse pulmonary involvement 2) Worsening hypoxemia possibly secondary to PNA 3) H/O Malignant Left pleural effusion with prior pleural catheter (recently removed 4) Chemotherapy induced anemia. Plan: Patient somewhat better today. She feels that she is breathing easier. Her pulse rate is lower and her fever has resolved. Discussed things with patient and father. She is aware of the severity of her illness. She is hoping to be able to receive a trial of immunotherapy (PD1 inhibitor). Plan to continue treatment of superimposed community aquired PNA. If she does not improve over next 48 - 72 hours then we may need to readdress the goals of care. Plan to switch Dilaudid to oral MSO4 as she takes this at home. CTA showed no evidence of PE. No indication for transfusion today. Will reevaluate tomorrow. Case d/w hospitalist service and nursing. Patient and father's questions answered. 08/03/16 13:55 08/03/16 14:13 Subjective: CTA showed no PE. Feels her breathing is slightly better. Father at bedside. Objective: Vital Signs Temp Pulse Resp BP Pulse Ox 36.8 C 116 H 20 139/94 H 92 08/03/16 11:10 08/03/16 11:10 08/03/16 11:10 08/03/16 11:10 08/03/16 11:10 Laboratory Results 08/03/16 06:15 08/03/16 06:15 08/02/16 08/03/16 08/04/16 05:59 05:59 05:59 Intake Total 2675 Balance 2675 PT 14.7 SEC (12.0-15.0) 08/02/16 12:55 INR 1.15 (0.83-1.16) 08/02/16 12:55 - Time Spent With Patient Time Spent With Patient: 25 minutes Physical Exam - Physical Exam General Appearance: alert, no apparent distress EENT: PERRL/EOMI Respiratory: other (Decreased BS bilaterally. No wheeze or rhonchi) Cardiac/Chest: other (tachycardic, without murmur) Neuro/Psych: alert, normal mood/affect ICD10 Worksheet Patient Problems: Problems Problem Status Onset Breast cancer metastasized to axillary lymph node Acute
--- NOTE | 2016-08-03 15:33 | HOSPPROG ---
Hospitalist Progress Note Assessment/Plan: * Pneumonia with sepsis -ceftriaxone/azithro * Bilateral pulmonary infiltrates -mostly lymphangitic spread of breast ca -hopeful there is an infectious element that may improve * Acute on chronic respiratory failure - baseline 3L * Metastatic breast cancer -progressive despite maximal therapy -last possibility is immunotherapy - possible start as outpatient soon * Malignant pleural effusion -Pleurx catheter recently removed without re-accumulation Subjective: very sob, maybe feeling a little better Objective: Vital Signs Temp Pulse Resp BP Pulse Ox 36.8 C 116 H 20 139/94 H 92 08/03/16 11:10 08/03/16 11:10 08/03/16 11:10 08/03/16 11:10 08/03/16 11:10 Laboratory Results 08/03/16 06:15 08/03/16 06:15 08/02/16 08/03/16 08/04/16 05:59 05:59 05:59 Intake Total 2675 Balance 2675 PT 14.7 SEC (12.0-15.0) 08/02/16 12:55 INR 1.15 (0.83-1.16) 08/02/16 12:55 d/w Dr. Renee - there are plans to try immunotherapy as outpatient tele reviewed - sinus tachycardia Using IV dilaudid regularly - Physical Exam Constitutional: no apparent distress, appears nourished, not in pain Cardiovascular: regular rate and rhythym, no murmur, rub, or gallop Respiratory: inspiratory crackles, respiratory distress, No expiratory wheeze, No rhonchi Genitourinary: no bladder fullness, no bladder tenderness, no renal bruits Skin: no rashes or abrasions, no fluctuance, no induration Neurologic: AAOx3, sensation intact bilaterally Psychiatric: interacting appropriately, not anxious, not encephalopathic, thought process linear ICD10 Worksheet Patient Problems: Problems Problem Status Onset Breast cancer metastasized to axillary lymph node Acute
[2016-08-03] MEDS: IPRATROPIUM/ALBUTEROL 3 ML DEYVIAL IH SCH ×2 (17:21→21:39)
[2016-08-03] MEDS: SENNOSIDES/DOCUSATE SODIUM TAB PO SCH (19:48)
[2016-08-04] MEDS: HYDROmorphONE/DILAUDID 2 MG/ML INJ IVP PRN ×6 (01:59→20:10)
[2016-08-04] MEDS: OXYCODONE/APAP 5/325 TAB PO PRN ×3 (01:59→10:46)
[2016-08-04 05:21] LABS: % IMMATURE GRANULYOCYTES 1.3 % (0.0-1.1); ABSOLUTE IMMATURE GRANULOCYTES 0.11 10^3/uL (0.00-0.10); ABSOLUTE NRBC COUNT 0.02 10^3/uL (0-0.01); ADD DIFF? NO; ADD MORPH? NO; ADD SCAN? NO; ATYPICAL LYMPHOCYTE FLAG 10 (0-99); FRAGMENT RBC FLAG 20 (0-99); HEMOGLOBIN 9.4 g/dL (12.6-16.3); LEFT SHIFT FLG 10 (0-99); LIPEMIA HEMOLYSIS FLAG 80 (0-99); MEAN CELL HEMOGLOBIN 33.2 pg (27.9-34.1); MEAN CELL HEMOGLOBIN CONCENTR. 33.6 g/dL (32.4-36.7); MEAN CELL VOLUME 98.9 fL (81.5-99.8); MEAN PLATELET VOLUME 10.5 fL (8.7-11.7); NRBC-AUTO% 0.2 % (0.0-0.2); PLATELET CLUMPS FLAG 0 (0-99); PLATELET COUNT 244 10^3/uL (150-400); RED BLOOD CELL COUNT 2.83 10^6/uL (4.18-5.33); RED CELL DISTRIBUTION WIDTH 16.1 % (11.5-15.2)
[2016-08-04 05:32] LABS: ANION GAP 10 mEq/L (8-16); CALCIUM 8.4 mg/dL (8.5-10.4); CARBON DIOXIDE 33 mEq/l (22-31); CHLORIDE 96 mEq/L (97-110); CREATININE 0.4 mg/dL (0.6-1.0); GLOMERULAR FILTRATION RATE > 60; GLUCOSE 106 mg/dL (70-100); POTASSIUM 3.3 mEq/L (3.5-5.2); SODIUM 139 mEq/L (134-144)
[2016-08-04] MEDS: IPRATROPIUM/ALBUTEROL 3 ML DEYVIAL IH SCH ×3 (06:02→16:09)
[2016-08-04] MEDS: AZITHROMYCIN IV 500 MG in D5W 250 ML IV SCH (08:42)
[2016-08-04] MEDS: ENOXAPARIN 40 MG/0.4 ML SYR SC SCH (08:42)
[2016-08-04] MEDS: SENNOSIDES/DOCUSATE SODIUM TAB PO SCH ×2 (08:44→21:43)
[2016-08-04] MEDS: DEXAMETHASONE 4 MG TAB PO SCH (08:45)
[2016-08-04] MEDS: PANTOPRAZOLE SODIUM 40 MG TAB PO SCH (08:45)
[2016-08-04] MEDS ORDERED: PROTOCOL POTASSIUM 1 DOSE MISC PRN (08:53)
[2016-08-04] MEDS: LORazepam 0.5 MG TAB PO PRN (09:24)
--- NOTE | 2016-08-04 09:26 | SOAPPROG ---
SOAP Progress Note Assessment/Plan: Assessment: 1) Metastatic breast cancer with diffuse pulmonary involvement 2) Worsening hypoxemia. 3) H/O Malignant Left pleural effusion with prior pleural catheter (recently removed 4) Chemotherapy induced anemia. Plan: Fauzia is doing poorly this morning. Her father is at the bedside. She is requiring 6 liters O2 to maintain her O2 sat. She has increased work of breathing. She does not appear to be responding to IV abx therapy. This would suggest that her metastatic breast cancer is playing the biggest role in her dyspnea. I had a very lashawn discussion with Fauzia and her father about this. We specifically discussed the possibility that she will require intubation. She does not want to do this, but also expresses her fear of dying. I explained that the overall prognosis is poor at this point, and it is very likely that further treatment of her metastatic breast cancer may not be possible. The patient and family would like to meet with Dr. Vazquez, who has agreed to meet with them at 12:30 today to discuss the direction of care. Nursing present for meeting this morning. Case d/w Dr. García. 08/03/16 13:55 08/03/16 14:13 08/04/16 09:19 Subjective: Fauzia is doing poorly this morning. She has an increased oxygen requirement. She is increasingly tachycardic. Her father is at the bedside. Objective: Vital Signs Temp Pulse Resp BP Pulse Ox 36.9 C 119 H 26 H 146/83 H 90 L 08/04/16 07:54 08/04/16 07:54 08/04/16 07:54 08/04/16 07:54 08/04/16 07:54 Laboratory Results 08/04/16 05:10 08/04/16 05:10 08/03/16 08/04/16 08/05/16 05:59 05:59 05:59 Intake Total 2675 2400 Balance 2675 2400 PT 14.7 SEC (12.0-15.0) 08/02/16 12:55 INR 1.15 (0.83-1.16) 08/02/16 12:55 - Time Spent With Patient Time Spent With Patient: 35 minutes Physical Exam - Physical Exam General Appearance: mild distress EENT: PERRL/EOMI Respiratory: other (Lung sounds decreased bilaterally with faint bilateral wheeze) Cardiac/Chest: other (tachycardic. No murmur) Abdomen: non-tender, soft Neuro/Psych: alert, normal mood/affect, oriented x 3 ICD10 Worksheet Patient Problems: Problems Problem Status Onset Breast cancer metastasized to axillary lymph node Acute
[2016-08-04] MEDS ORDERED: LORazepam 2 MG/ML INJ IVP PRN ×2 (13:24→13:25)
[2016-08-04] MEDS: LORazepam 0.5 MG TAB PO SCH ×3 (13:35→21:32)
[2016-08-04] MEDS: POTASSIUM Cl (KCl) 50 ML IV SCH ×3 (13:37→16:54)
--- NOTE | 2016-08-04 14:36 | HOSPPROG ---
Hospitalist Progress Note Assessment/Plan: * Acute on chronic respiratory failure - baseline 3L -severe respiratory distress, increased O2, increasing infiltrates -suspect progression of malignancy - has not seemed to improve with antibiotics -per Dr. Vazquez - add empiric steroids * Pneumonia with sepsis -ceftriaxone/azithro * Bilateral pulmonary infiltrates -mostly lymphangitic spread of breast ca * Metastatic breast cancer -progressive despite maximal therapy -last possibility is immunotherapy - not a possibility given current acuity of illness * Malignant pleural effusion -Pleurx catheter recently removed without re-accumulation Patient is critically ill. She is heading for intubation. There doesn't seem to be anything reversible. Very unstable all morning - was going to require transfer to ICU. This afternoon, patient and family have decided against ICU transfer. She is now full DNR. They would like to talk to hospice. She will require inpatient hospice as symptom management will be difficult. CC time - 1 hour Subjective: Patient doing very poorly - increased O2 overnight, very SOB Objective: Vital Signs Temp Pulse Resp BP Pulse Ox 36.9 C 118 H 28 H 138/103 H 93 08/04/16 12:00 08/04/16 12:00 08/04/16 12:06 08/04/16 12:00 08/04/16 12:00 Laboratory Results 08/04/16 05:10 08/04/16 05:10 08/03/16 08/04/16 08/05/16 05:59 05:59 05:59 Intake Total 2675 2400 Balance 2675 2400 PT 14.7 SEC (12.0-15.0) 08/02/16 12:55 INR 1.15 (0.83-1.16) 08/02/16 12:55 d/w Dr. Vazquez - after unstable status all morning, he met with her and they agreed to DNR. Okay to keep comfortable with ativan and narcs. They will meet with hospice and consider inpatient hospice. CXR viewed, my personal interpretation is - severe increased bilateral infiltrates tele reviewed - sinus tachycardia up to 150 - Physical Exam Constitutional: chronically ill appearing, uncomfortable, cachectic, No no apparent distress, No appears nourished, No not in pain Cardiovascular: tachycardia, No systolic murmur, No JVD, No edema Respiratory: inspiratory crackles, respiratory distress, No reduced air movement , No expiratory wheeze, No rhonchi Gastrointestinal: normoactive bowel sounds, soft, non-tender abdomen, no palpable masses Skin: no rashes or abrasions, no fluctuance, no induration Neurologic: AAOx3, sensation intact bilaterally Psychiatric: interacting appropriately, not anxious, not encephalopathic, thought process linear ICD10 Worksheet Patient Problems: Problems Problem Status Onset Breast cancer metastasized to axillary lymph node Acute
[2016-08-04] MEDS: methylPREDNISolone SOD SUCC 125 MG/2 ML VIAL IVP SCH (18:02)
[2016-08-05] MEDS: IPRATROPIUM/ALBUTEROL 3 ML DEYVIAL IH SCH ×5 (00:43→23:47)
[2016-08-05] MEDS: HYDROmorphONE/DILAUDID 2 MG/ML INJ IVP PRN ×5 (00:53→16:51)
[2016-08-05] MEDS: methylPREDNISolone SOD SUCC 125 MG/2 ML VIAL IVP SCH ×6 (00:55→23:15)
[2016-08-05] MEDS: LORazepam 0.5 MG TAB PO SCH ×6 (01:31→22:37)
[2016-08-05 05:40] LABS: % IMMATURE GRANULYOCYTES 0.7 % (0.0-1.1); ABSOLUTE IMMATURE GRANULOCYTES 0.05 10^3/uL (0.00-0.10); ADD DIFF? NO; ADD MORPH? NO; ADD SCAN? NO; ATYPICAL LYMPHOCYTE FLAG 10 (0-99); FRAGMENT RBC FLAG 20 (0-99); HEMATOCRIT 28.3 % (38.0-47.0); HEMOGLOBIN 9.4 g/dL (12.6-16.3); LEFT SHIFT FLG 10 (0-99); LIPEMIA HEMOLYSIS FLAG 80 (0-99); MEAN CELL HEMOGLOBIN 32.2 pg (27.9-34.1); MEAN CELL HEMOGLOBIN CONCENTR. 33.2 g/dL (32.4-36.7); MEAN CELL VOLUME 96.9 fL (81.5-99.8); MEAN PLATELET VOLUME 10.7 fL (8.7-11.7); PLATELET CLUMPS FLAG 0 (0-99); PLATELET COUNT 279 10^3/uL (150-400); RED BLOOD CELL COUNT 2.92 10^6/uL (4.18-5.33); RED CELL DISTRIBUTION WIDTH 16.4 % (11.5-15.2)
[2016-08-05 06:16] LABS: ANION GAP 10 mEq/L (8-16); CALCIUM 8.7 mg/dL (8.5-10.4); CARBON DIOXIDE 37 mEq/l (22-31); CHLORIDE 93 mEq/L (97-110); CREATININE 0.4 mg/dL (0.6-1.0); GLOMERULAR FILTRATION RATE > 60; GLUCOSE 126 mg/dL (70-100); SODIUM 140 mEq/L (134-144)
[2016-08-05] MEDS: DEXAMETHASONE 4 MG TAB PO SCH (08:03)
[2016-08-05] MEDS: PANTOPRAZOLE SODIUM 40 MG TAB PO SCH (08:04)
[2016-08-05] MEDS: ENOXAPARIN 40 MG/0.4 ML SYR SC SCH (08:07)
[2016-08-05] MEDS: AZITHROMYCIN IV 500 MG in D5W 250 ML IV SCH (08:16)
[2016-08-05] MEDS: SENNOSIDES/DOCUSATE SODIUM TAB PO SCH ×3 (11:06→22:37)
--- NOTE | 2016-08-05 12:26 | SOAPPROG ---
SOAP Progress Note Assessment/Plan: Assessment: 1) Metastatic breast cancer with diffuse pulmonary involvement 2) Worsening hypoxemia. 3) H/O Malignant Left pleural effusion with prior pleural catheter (recently removed) 4) Chemotherapy induced anemia. Plan: Fauzia and her family met with Dr. Vazquez yesterday. She has decided upon DNR code status. The decision has been made not to pursue any further treatment for her metastatic breast cancer. Fauzia and her family are scheduled to meet with Hospice later today. They are understanding and accepting of the terminal nature of her illness. Fauzia expresses her wish to be comfortable, and states that she wants to avoid pain. Her pain and air hunger are much better with PRN Dilaudid. Fauzia and her family indicate that Q 2 hour Dilaudid has not been quite frequent enough to adequately control her symptoms. We discussed changing this to Q1 hour as needed. The change has been made, and hopefully this will result in better control of her symptoms. Given the tenuous nature of her respiratory status, home hospice will not likely be an option. Patient and family would prefer inpatient hospice. Patient/ family questions answered. Case d/w nursing. Total time = 40 minutes Objective: Vital Signs Temp Pulse Resp BP Pulse Ox 36.6 C 123 H 32 H 124/83 H 90 L 08/05/16 08:00 08/05/16 08:00 08/05/16 08:00 08/05/16 08:00 08/05/16 08:00 Laboratory Results 08/05/16 05:25 08/05/16 05:25 08/04/16 08/05/16 08/06/16 05:59 05:59 05:59 Intake Total 2400 1780 Output Total 1075 Balance 2400 705 PT 14.7 SEC (12.0-15.0) 08/02/16 12:55 INR 1.15 (0.83-1.16) 08/02/16 12:55 - Time Spent With Patient Time Spent With Patient: 40 minutes Physical Exam - Physical Exam General Appearance: alert, no apparent distress (Lung sounds decreased bilaterally) Cardiac/Chest: regular rate, rhythm Neuro/Psych: oriented x 3 ICD10 Worksheet Patient Problems: Problems Problem Status Onset Breast cancer metastasized to axillary lymph node Acute
--- NOTE | 2016-08-05 16:12 | HOSPPROG ---
Hospitalist Progress Note Assessment/Plan: Fauzia has decided to discharge to hospice. 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 No reversible cause for resp failure discovered. Using IV dilaudid hourly for SOB management. Will need inpatient hospice due to severe symptoms that will be difficult to control. May need narcotic drip. * Acute on chronic respiratory failure - baseline 3L -severe respiratory distress, increased O2, increasing infiltrates -suspect progression of malignancy - has not seemed to improve with antibiotics -per Dr. Vazquez - add empiric steroids * Pneumonia with sepsis -ceftriaxone/azithro * Bilateral pulmonary infiltrates -mostly lymphangitic spread of breast ca * Metastatic breast cancer -progressive despite maximal therapy -last possibility is immunotherapy - not a possibility given current acuity of illness * Malignant pleural effusion -Pleurx catheter recently removed without re-accumulation To [facility] hosp[facility] as inpatient - arranged for tomorrow am Subjective: Currently comfortable Objective: Vital Signs Temp Pulse Resp BP Pulse Ox 37.1 C 109 H 21 H 110/76 90 L 08/05/16 15:35 08/05/16 15:35 08/05/16 15:35 08/05/16 15:35 08/05/16 15:35 Laboratory Results 08/05/16 05:25 08/05/16 05:25 08/04/16 08/05/16 08/06/16 05:59 05:59 05:59 Intake Total 2400 1780 Output Total 1075 Balance 2400 705 PT 14.7 SEC (12.0-15.0) 08/02/16 12:55 INR 1.15 (0.83-1.16) 08/02/16 12:55 - Physical Exam Constitutional: no apparent distress, appears nourished, not in pain Cardiovascular: no murmur, rub, or gallop, tachycardia, No JVD, No edema Respiratory: inspiratory crackles, respiratory distress, No expiratory wheeze, No rhonchi Gastrointestinal: normoactive bowel sounds, soft, non-tender abdomen, no palpable masses Skin: no rashes or abrasions, no fluctuance, no induration Neurologic: AAOx3, sensation intact bilaterally Psychiatric: interacting appropriately, not anxious, not encephalopathic, thought process linear ICD10 Worksheet Patient Problems: Problems Problem Status Onset Breast cancer metastasized to axillary lymph node Acute
[2016-08-05] MEDS: HYDROmorphONE/DILAUDID 1 MG/ML SYR IVP PRN ×2 (18:22→23:15)
[2016-08-05 22:58] VITALS: TEMP 97.9
[2016-08-06] MEDS: LORazepam 0.5 MG TAB PO SCH ×3 (01:39→09:58)
[2016-08-06] MEDS: methylPREDNISolone SOD SUCC 125 MG/2 ML VIAL IVP SCH (05:36)
[2016-08-06] MEDS: IPRATROPIUM/ALBUTEROL 3 ML DEYVIAL IH SCH (05:40)
[2016-08-06] MEDS ORDERED: HYDROmorphONE/DILAUDID 1 MG/ML SYR IVP PRN (08:44)
[2016-08-06] MEDS ORDERED: HYDROmorphONE/DILAUDID 2 MG/ML INJ ONE (08:47)
[2016-08-06 08:55] VITALS: BP 113/72; PULSE 111; RESP 20; O2SAT 91
--- NOTE | 2016-08-06 09:51 | PDDCSUM ---
Discharge Summary Discharge Summary: DISCHARGE SUMMARY FOLLOW-UP ITEMS: None DATE OF ADMISSION: 08/02/2016 DATE OF DISCHARGE: 08/06/2016 DISCHARGE DIAGNOSES: 1. Acute on chronic hypoxic respiratory failure 2. Community acquired pneumonia 3. Sepsis POA 4. Bilateral pulmonary infiltrates 5. Metastatic breast cancer 6. Malignant pleural effusion CONSULTATIONS: Oncology, hospice PROCEDURES / IMAGING: CT angiograms demonstrating bilateral pulmonary infiltrates and effusions CHIEF COMPLAINT: Acute shortness of breath and chest pain SUBJECTIVE: Patient had some chest pain on the morning of discharge, this was relieved with Dilaudid PHYSICAL EXAM ON DISCHARGE: Systolic blood pressure is 110, heart rates in the 90s, requiring 9 L nasal cannula oxygen, afebrile overnight, patient is responsive to verbal stimuli, she is accompanied by her mother and both her tearful, the patient is ill- appearing LABS ON DISCHARGE: None HOSPITAL COURSE BY PROBLEM: 1. Acute on chronic hypoxic respiratory failure. Evidenced by severe respiratory distress with increased supplemental oxygen needs up to 13 L OxyMask (baseline is 3 L nasal cannula) with objective tachypnea and respiratory rate up to 35 an SpO2 as low as 70%. Most likely cause is a combination of pneumonia as well as malignant infiltrates and effusions. Patient's respiratory status remained significantly impaired and she is being discharged to hospice at this time with as needed pain and anxiolytic medications for comfort. 2. Community-acquired pneumonia. Present on CT imaging, treated with 5 days of combination of ceftriaxone and azithromycin. She will not require additional antibiotics at time of discharge. 3. Sepsis POA. Evidenced by tachycardia plus fever plus identifiable source of infection, resulting in autonomic dysregulation which is the sepsis-2 definition of sepsis. Her tachycardia was in the 130s on admission and her temperature was 38.2 degrees C. Her source was obvious pneumonia. She received appropriate treatment including IV fluids and empiric IV antibiotics, and her condition improved. Of note, she did not experience leukocytosis but this is most likely secondary to previous chemotherapy, and she did have evidence of left shift on CBC. 4. Bilateral pulmonary infiltrates. Most likely secondary to lymphangitic spread of her breast cancer. In addition, she did have community-acquired pneumonia. 5. Metastatic breast cancer. Patient's breast cancer has progressed despite maximal therapy, and she was seen in consultation by Oncology. They recommended hospice care and the patient is transitioning to the inpatient [facility] hospice center at this time. 6. Malignant pleural effusions. A PleurX catheter was recently removed without reaccumulation, she does have some effusions on chest imaging. DISCHARGE MEDICATIONS: Please see official discharge medication reconciliation sheet in chart , Dilaudid as needed, Ativan as needed, continue other home medications. DISCHARGE INSTRUCTIONS: Patient will be discharged to the inpatient hospice care center at this time. TIME SPENT: Greater than 30 minutes were spent on direct patient care, as well as discharge planning and preparation.
--- NOTE | 2016-08-06 09:53 | PDIAF ---
- Diagnosis Diagnosis: Metastatic breast cancer, pneumonia Code Status: Do Not Resuscitate - Medication Management Discharge Medications: Medications to Continue on Transfer Dexamethasone [Decadron 4 MG (*)] 2 mg PO DAILY 08/02/16 [Last Taken 08/01/16] Granisetron [Sancuso] 1 each TD TH 08/02/16 [Last Taken 07/28/16] LORazepam [Ativan (*)] 0.5 mg PO Q4H PRN 08/02/16 [Last Taken 08/01/16] Lidocaine 3% Cream 1 joaquim TP PRN PRN 08/02/16 [Last Taken Unknown] Omeprazole [Prilosec 20 mg] 20 mg PO DAILY 08/02/16 [Last Taken 08/01/16] Ondansetron HCl [Zofran] 8 mg PO Q8H PRN 08/02/16 [Last Taken Unknown] morphINE [Roxanol 10 mg/0.5 ml oral soln (*)] 10 mg PO Q2-4PRN PRN 08/02/16 [ Last Taken 08/02/16] oxyCODONE/APAP 5/325 [Percocet 5/325 (*)] 1 tab PO Q4-6PRN PRN 08/02/16 [Last Taken Unknown] Acetaminophen [Tylenol 325mg (*)] 650 mg PO Q4 PRN #0 tab 08/06/16 [Last Taken Unknown] HYDROmorphone HCL [Dilaudid] 0.5 - 1 mg IVP Q1 PRN #30 syr 08/06/16 [Last Taken Unknown] LORazepam [Ativan inj 2 mg/ml (*)] 1 mg IVP Q4 PRN #30 inj 08/06/16 [Last Taken Unknown] Alarm Technician Antibiotics: NA Discharge Medications: Refer to the Discharge Home Medication list for PRN reason. PICC Care - Routine: N/A - Orders Services needed: Registered Nurse Oxygen: 9L oximask Diet Recommendation: no restrictions on diet Hall: Not applicable - Follow Up Care Current Providers and Referrals: Patient,NotPresent [Primary Care Provider] -
[2016-08-06] MEDS: AZITHROMYCIN IV 500 MG in D5W 250 ML IV SCH (09:54)
[2016-08-06] MEDS: PANTOPRAZOLE SODIUM 40 MG TAB PO SCH (09:55)
[2016-08-06] MEDS: ENOXAPARIN 40 MG/0.4 ML SYR SC SCH (09:55)
[2016-08-06] MEDS: SENNOSIDES/DOCUSATE SODIUM TAB PO SCH (09:55)
[2016-08-06] MEDS: DEXAMETHASONE 4 MG TAB PO SCH (10:06)
[2016-08-06] MEDS ORDERED: HYDROmorphONE/DILAUDID 1 MG/ML SYR IVP ONE (10:30)
== END 2016-08-06 10:17 | disposition hospice, home (50) | DRG 871 ==
LOC: F2W 12:19 → OBSVTOIN 08-03 15:51
PROVIDERS: ADMIT Internal Medicine; ATTEND Internal Medicine
DX: A41.9 Sepsis, unspecified organism (principal); J18.8 Other pneumonia, unspecified organism; J96.21 Acute and chronic respiratory failure with hypoxia; C79.81 Secondary malignant neoplasm of breast; C79.89 Secondary malignant neoplasm of other specified sites; J91.0 Malignant pleural effusion; C78.01 Secondary malignant neoplasm of right lung; C78.02 Secondary malignant neoplasm of left lung; D64.81 Anemia due to antineoplastic chemotherapy; Z66 Do not resuscitate
CPT/HCPCS: 97161-GP; G0378; J0456; J0696; J1170; J1650; J2405; Q9967